=== PATIENT | male | born 1945 | race Caucasian/White ===

== ENCOUNTER → 2017-03-29 | Outpatient (CLI) | payer MEDICARE, OTHER ==
[~2017-03-29] MED LIST: ASPI-664 PO; METO50TA16 PO; ROSU5TAB5 PO
--- NOTE | 2017-03-29 17:19 | RADRPT ---
PROCEDURE: XR Pelvis and Hips. CLINICAL INDICATION: Pelvic pain. Bilateral hip pain. TECHNIQUE: Five views. Frontal pelvis. Frontal and lateral right hip. Frontal and lateral left hip. COMPARISON: 11/26/2014. FINDINGS: There is a large osteochondroma arising from the right femoral neck measuring approximately 10.5 x 5 .4 cm, unchanged. The left hip total arthroplasty also appears satisfactory and unchanged. There i s no fracture or dislocation. There is no lytic lesion. The soft tissues are normal. Articular surfaces are otherwise intact. There are degenerative changes of the lower lumbar spine. IMPRESSION: 1. Large right femoral neck osteochondroma, unchanged. 2. Left hip total arthroplasty appears satisfactory. 3. Degenerative changes of the lower lumbar spine. 4. No change from 11/26/2014. RPTAT: QQ .Giorgio Clifford MD, Date Time Electronically viewed and signed by .Giorgio Clifford MD, on 03/29/2017 17:18 .R/
--- NOTE | 2017-03-29 17:22 | RADRPT ---
PROCEDURE: XR Femur. CLINICAL INDICATION: Left leg pain. TECHNIQUE: AP and lateral views of the left femur were performed. COMPARISON: None. FINDINGS: There is a left hip total arthroplasty which appears satisfactory. There are osteochondromas of the distal femur with mild deformity of the metaphysis. Articular surfaces are intact. There is no lytic or blastic lesion. There are moderate degenerative changes of the left knee joint. IMPRESSION: 1. Satisfactory postoperative appearance of the left hip. 2. Osteochondromas of the distal femur with mild deformity of the metaphysis. 3. Moderate degenerative changes of the left knee joint. RPTAT: QQ .Giorgio Clifford MD, MD Date Time Electronically viewed and signed by .Giorgio Clifford MD, on 03/29/2017 17:22 .R/
== END | disposition home or self-care (01) ==
LOC: HKI 14:14
PROVIDERS: ATTEND Orthopaedic Surgery
DX: M25.552 Pain in left hip (principal); D16.9 Benign neoplasm of bone and articular cartilage, unspecified; M25.551 Pain in right hip; Z96.642 Presence of left artificial hip joint; T84.091A Other mechanical complication of internal left hip prosthesis, initial encounter
CPT/HCPCS: 73523; 73552; G0463

== ENCOUNTER → 2017-04-01 | Outpatient (CLI) | payer MEDICARE, OTHER ==
--- NOTE | 2017-04-01 16:03 | RADRPT ---
PROCEDURE: Three-phase bone scan study CLINICAL INDICATION: 72 -year-old patient with left hip replacement, complaining of left hip pain. TECHNIQUE: Following the intravenous injection of 25.1 mCi of Tc-99m MDP, a three-phase bone scan study of the hips bilaterally was obtained. Delayed images of the lower thoracic and lumbar spine an d knees bilaterally were obtained. COMPARISON: No prior bone scan studies. X-ray of the hips bilaterally dated March 29, 2017. CT scan of the left lower extremity dated April 01, 2017. FINDINGS: Blood flow phase of the study demonstrates symmetrical distribution of activity in the hips bilatera lly. Blood pooling images reveal symmetrical distribution of uptake in both hips. Delayed images of both hips demonstrate evidence of a left hip replacement with mildly increased act ivity noted surrounding the prosthesis, including the tip of the prosthesis in the left proximal fem ur, which possibly related to prior surgery. Area of moderately increased activity is visualized in the region of the right hip, which correspond s to a large osteochondroma arising from the right femoral neck measuring approximately 10.5 cm in m aximal dimension as noted on the x-ray dated March 29, 2017. Delayed spot images of the knees bilaterally demonstrate very mildly increased activity in both knee s, which favor degenerative disease. Mildly nonhomogeneous distribution of activity is seen in the lumbar spine, which is likely related to degenerative process. IMPRESSION: 1. Evidence of the left hip replacement with possibly postsurgical changes; prosthesis loosening ca nnot be ruled out. 2. Moderately increased tracer uptake in the right hip region correlating with a 10.5 cm osteochond oskar visualized on the previous x-ray. 3. Likely mild degenerative changes of the lumbar spine and both knees. 4. No other abnormal areas of increased uptake in the obtained limited views of both hips and knees . RPTAT: HH .Liz Vaughn MD, MD Date Time Electronically viewed and signed by .Liz Vaughn MD, on 04/01/2017 16:02 .L/
--- NOTE | 2017-04-01 20:26 | RADRPT ---
PROCEDURE: CT left hip without contrast CLINICAL INDICATION: Left hip pain, status post left total hip arthroplasty. TECHNIQUE: A noncontrast CT of the left hip was performed. Coronal and sagittal reformats were ge nerated. CTDIvol: 36.48 mGy. DLP: 2441.87 mGy-cm. COMPARISON: Pelvis and left hip x-rays dated 03/29/2017. FINDINGS: The patient status post left total hip arthroplasty. Beam-hardening artifact from the arthroplasty h ardware slightly limits evaluation of the adjacent structures. Osseous alignment is normal. No frac ture or dislocation is identified. There is no evidence of osteolysis. The bones are osteopenic. N o suspicious osseous lesion is identified. The left iliac bone appears expanded, but the left iliac cortex and medullary space are normal in appearance. There is fusion across the left sacroiliac lori nt. No suspicious osseous lesion is identified. There is a 1.0 cm calcification posterior to the kne e joint possibly intra-articular loose body. There is severe sigmoid colon diverticulosis. There is a small fat containing left inguinal hernia. IMPRESSION: 1. Left total hip arthroplasty. There is no evidence of osteolysis. 2. No fracture or dislocation. 3. Osteopenia. 4. Fusion across the left sacroiliac joint. 5. 1.0 cm calcification posterior to the knee joint, possibly intra-articular loose body. This coul d be further evaluated with MRI if clinically warranted. RPTAT: HTAR .Bryn Gaxiola MD, Date Time Electronically viewed and signed by .Bryn Gaxiola MD, on 04/01/2017 20:25 .R/
== END | disposition home or self-care (01) ==
LOC: NUC 09:59
PROVIDERS: ATTEND Orthopaedic Surgery
DX: T84.84XA Pain due to internal orthopedic prosthetic devices, implants and grafts, initial encounter (principal); Z96.642 Presence of left artificial hip joint; Y83.8 Other surgical procedures as the cause of abnormal reaction of the patient, or of later complication, without mention of misadventure at the time of the procedure
CPT/HCPCS: 73700; 78315; A9503

== ENCOUNTER → 2017-05-21 | Outpatient (CLI) | payer MEDICARE, OTHER ==
[~2017-05-21] MED LIST changes: +ASPI325T32 PO; +HYDR-3605 PO; +PANT40TA4 PO; +PRAV10TA43 PO; +TAMS0.4C2 PO; +TRAM50TA2 PO
== END | disposition home or self-care (01) ==
LOC: HKI 09:05
PROVIDERS: ATTEND Orthopaedic Surgery
DX: Z01.818 Encounter for other preprocedural examination (principal); T84.091A Other mechanical complication of internal left hip prosthesis, initial encounter; M25.552 Pain in left hip; Y83.8 Other surgical procedures as the cause of abnormal reaction of the patient, or of later complication, without mention of misadventure at the time of the procedure; D16.9 Benign neoplasm of bone and articular cartilage, unspecified; M25.551 Pain in right hip; Z96.642 Presence of left artificial hip joint
CPT/HCPCS: 87081; G0463

== ENCOUNTER 2017-05-27 09:53 | Inpatient (IN) | payer MEDICARE, OTHER ==
[2017-05-26 11:02] VITALS: BMI 31.5
[~2017-05-27] VITALS: Ht 172.7 cm; Wt 94.2 kg
[2017-05-27] VITALS (21 sets, daily range): BP systolic 124–179; BP diastolic 59–83; PULSE 72–92; RESP 13–29; Ht 172.7 cm; Wt 94.2 kg
[2017-05-27] MEDS: PAIN COCKTAIL-CEFUROXIME IRR SCH ×7
[~2017-05-27 09:53] MED LIST changes: -ASPI325T32 PO; -HYDR-3605 PO; -PANT40TA4 PO; -PRAV10TA43 PO; -TAMS0.4C2 PO; -TRAM50TA2 PO
[2017-05-27] MEDS ORDERED: PRAV10TA43 PO (11:11)
[2017-05-27] MEDS ORDERED: TAMS0.4C2 PO (11:11)
[2017-05-27] MEDS ORDERED: TRANEXAMIC ACID 940 MG in SOD CHLORIDE 0.9% 100 ML IVPB SCH (12:00)
[2017-05-27] MEDS ORDERED: CEFAZOLIN 2GM/50 ML (PMX) 50 ML X1 BEFORE INCISION IVPB SCH (12:00)
[2017-05-27] MEDS ORDERED: BUPIVACAINE LIPOSOME/PF 266 MG/20 ML VIAL INFIL SCH (12:00)
[2017-05-27] MEDS ORDERED: oxyCODONE (CR) 10 MG TAB [oxyCONTIN] X1 DOSE PO SCH (12:00)
[2017-05-27] MEDS ORDERED: ONDANSETRON 4 MG IV X 1 DOSE IV SCH (12:00)
[2017-05-27] MEDS ORDERED: EXPAREL NOTE (BUPIVICAINE LIPOSOMAL) XX SCH (12:00)
[2017-05-27] MEDS ORDERED: LACTATED RINGER'S 1,000 ML IV SCH (12:00)
[2017-05-27] MEDS ORDERED: PREGABALIN 300 MG PO X1 PO SCH (12:00)
[2017-05-27] MEDS ORDERED: traMADOL 50 MG TAB X 1 DOSE PO SCH (12:00)
[2017-05-27] MEDS ORDERED: TRANEXAMIC ACID IV SCH (12:00)
[2017-05-27] MEDS ORDERED: CELECOXIB 400 MG PO X1 DOSE PO SCH (12:00)
[2017-05-27] MEDS ORDERED: SOD CHLORIDE 0.9% IV SCH (12:00)
[2017-05-27] MEDS ORDERED: FENTAnyl 50 MCG/ML VIAL ONE (12:33)
[2017-05-27] MEDS ORDERED: NEOSTIGMINE 3 MG/3 ML SYRINGE ONE (12:33)
[2017-05-27] MEDS ORDERED: CEFAZOLIN 1 GM INJ ONE (12:33)
[2017-05-27] MEDS ORDERED: PROPOFOL 20 ML ONE (12:33)
[2017-05-27] MEDS ORDERED: ROCURONIUM 50 MG INJ ONE (12:33)
[2017-05-27] MEDS ORDERED: GLYCOPYRROLATE 0.4 MG INJ ONE (12:33)
[2017-05-27] MEDS ORDERED: MIDAZOLAM 1 MG/ML 2 ML INJ ONE (12:34)
[2017-05-27] MEDS ORDERED: ONDANSETRON 4 MG INJ ONE (12:34)
[2017-05-27] MEDS ORDERED: DEXAMETHASONE 4 MG/ML 1 ML INJ ONE (12:34)
--- NOTE | 2017-05-27 13:06 | HPN ---
Date/Time of Note Date/Time of Note DATE: 05/27/17 TIME: 13:05 Interval H&P Admission Note Pt. seen H&P reviewed: No system changes No changes from H&P on 05/14/17 by ANA Zurita MD May 27, 2017 13:06
[2017-05-27] MEDS ORDERED: POLYMYXIN/BACITRACIN 1L IRRIG ONE (13:21)
[2017-05-27] MEDS ORDERED: POLYMYXIN B 500000 UNIT INJ ONE (13:59)
[2017-05-27] MEDS ORDERED: VANCOMYCIN 1 GM INJ ONE (13:59)
[2017-05-27] MEDS ORDERED: BACITRACIN 50000 UNITS INJ ONE (14:00)
[2017-05-27] MEDS ORDERED: hydrALAzine 20 MG INJ IV PRN (14:30)
[2017-05-27] MEDS ORDERED: MIDAZOLAM 1 MG/ML 2 ML INJ IV PRN (14:30)
[2017-05-27] MEDS ORDERED: DIPHENHYDRAMINE 50 MG INJ IV PRN (14:30)
[2017-05-27] MEDS ORDERED: HYDROmorphONE (0.2 MG/ML) 10ML SYG IV PRN ×3 (14:30)
[2017-05-27] MEDS ORDERED: OXYCODONE/ACETAMINOPHEN (5/325) TAB PO PRN ×2 (14:30)
[2017-05-27] MEDS ORDERED: FENTAnyl 50 MCG/ML VIAL IV PRN ×2 (14:30)
[2017-05-27] MEDS ORDERED: ONDANSETRON 4 MG INJ IV PRN ×2 (14:30→17:00)
[2017-05-27] MEDS ORDERED: LABETALOL HCL 20MG INJ IV PRN (14:30)
[2017-05-27] MEDS ORDERED: EPHEDrine SULFATE 50 MG/5 ML SYG IV PRN (14:30)
[2017-05-27] MEDS ORDERED: MEPERIDINE 25 MG INJ IV PRN (14:30)
[2017-05-27] MEDS ORDERED: TRIMETHOBENZAMIDE 100 MG/ML VIAL IM PRN (14:30)
[2017-05-27] MEDS ORDERED: ETOMIDATE 20 MG INJ ONE (14:35)
[2017-05-27] MEDS ORDERED: PROPOFOL 100 ML ONE (14:35)
--- NOTE | 2017-05-27 16:33 | OPR ---
Date/Time of Note Date/Time of Note DATE: 05/27/17 TIME: 16:24 Operative Report Preoperative Diagnosis Impending fracture left femur below a total hip arthroplasty Postoperative Diagnosis Same Operation Performed Prophylactic plating left femur Surgeon: ANA DIAZ MD Anesthesia: general, spinal Anesthesiologist: Panfilo Estrada M.D. Estimated Blood Loss: 100 - 150 ml's Specimens None Grafts/Implants Synthes 12 hole locking condylar plate Tubes/Drains None Complications: None Pt Condition Post Procedure: stable Disposition: PACU Indications The patient is a 72-year-old gentleman with a history of osteochondromatosis who previously underwent a left total hip arthroplasty. He has developed some pain in the thigh below the stem. He has radiographic features of some varus remodeling around the stem and I felt that this represented an impending fracture. I recommended prophylactic plating. The risks benefits alternatives of the procedure were explained detail to the patient. Explained the risks to include but not be limited to bleeding and possible need for blood transfusion, infection, pain, stiffness, neurovascular injury with possible numbness, weakness, and/or paralysis anywhere from the hip down to the toes, fracture, malunion, nonunion, need for additional future surgery including hardware removal, blood clots, pulmonary embolism, and anesthetic complications such as heart attack, stroke, GI bleed, pneumonia, and/or . Ample time was allowed for the patient to ask questions all of which were addressed and answered. He understood and wished to proceed. Informed consent was signed prior to the procedure. Procedure Description A timeout was performed to confirm that the left side as correct operative site. The patient was then brought to the operating room and transferred from the [facility] to the operating room table where he was administered a spinal anesthetic and then anesthetized and intubated. Gabriel catheter was placed. He was given 2 g of intravenous Ancef within 1 hour prior to incision. He was then turned to the lateral decubitus position with the left side up. He was secured into the pegboard and all bony prominences were well-padded. An axillary roll had been placed under the right chest wall. The left hip and lower extremity were prepped and draped in the usual sterile fashion all the way down to the toes. At this point a incision was made over the lateral aspect of distal femur. This was carried down subcutaneous tissue and fat sharp dissection. The iliotibial band was incised. The vastus lateralis was identified and elevated off the distal femur. At this point a 12 hole left Synthes locking condylar plate was brought onto the field and placed in the distal femur and slid subperiosteally up the femur such that there were approximately 4 holes overlapping the distal portion of the femoral stem and bypass in the area of concern of varus remodeling. Another incision was made proximally separate from the distal incision and the proximal portion of the plate identified. It was placed appropriately on the femur from anterior to posterior. A provisional pin was placed proximally. Provisional wires were placed through the locking condylar portion of the distal plate into the distal femur. AP and lateral C-arm images showed that the plate to be in good position proximally distally on both AP and lateral views. At this point distal screws were placed through the locking condylar portion into the femur with the large central 7.3 screw and then peripheral screws around this. Attention was then turned proximally and eyelet holes were placed into the locking screw holes of the plate and 4 cables were passed around the femur and placed through the eyelet holes and tensioned to 100 kg pressure and then cut after the cable was crimped. Final AP and lateral C-arm images showed that the plate to be in good position proximally and distally. The wounds were irrigated with Betadine saline and then antibiotic saline and closed in layers with #1 Vicryl No. 2 Stratafix and 3-0 Vicryl and then mateus on the skin. Skin edges were sealed with Dermabond the wounds were covered with silver Mepilex dressings. The patient was awakened and extubated and taken to the recovery room in stable condition. ANA DIAZ MD May 27, 2017 16:32
[2017-05-27 16:49] LABS: HEMATOCRIT 37.9 % (42.0-52.0); HEMOGLOBIN 12.8 g/dl (14.0-18.0)
[2017-05-27] MEDS: FENTAnyl 50 MCG/ML VIAL IV PRN ×2 (16:55→17:29)
[2017-05-27] MEDS ORDERED: BISACODYL 10 MG SUPP PR PRN (17:00)
[2017-05-27] MEDS ORDERED: NACL 0.9% 3 ML SYG IV SCH (17:00)
[2017-05-27] MEDS ORDERED: DIPHENHYDRAMINE 25 MG CAP PO PRN (17:00)
[2017-05-27] MEDS ORDERED: NA PHOSPHATE/BIPHOS 133 ML ENEMA PR PRN (17:00)
[2017-05-27] MEDS ORDERED: HYDROmorphONE 1 MG/ML SYG IV PRN (17:00)
[2017-05-27] MEDS ORDERED: PENDING SANTYL ORDER FOR WOUND CARE XX PRN (17:00)
[2017-05-27] MEDS ORDERED: oxyCODONE 5 MG TAB PO PRN ×2 (17:00)
[2017-05-27] MEDS ORDERED: ASPIRIN (EC) 325 MG TAB PO ONE (17:00)
[2017-05-27] MEDS: LACTATED RINGER'S 1,000 ML IV SCH (17:09)
[2017-05-27 17:10] LABS: CREATININE 0.85 mg/dl (0.61-1.24); POTASSIUM 4.7 mmol/L (3.5-5.1)
[2017-05-27 17:13] LABS: CALCIUM 8.3 mg/dl (8.4-10.2)
--- NOTE | 2017-05-27 17:58 | RADRPT ---
PROCEDURE: Intraoperative imaging of the left femur with fluoroscopy. CLINICAL INDICATION: Left leg pain. Intraoperative. TECHNIQUE: 6 images of the left femur were obtained in the operating room with an image intensifie r. No radiologist was in attendance. 1.3 minutes of fluoroscopy time was used. COMPARISON: Left femur radiographs dated 03/29/2017. FINDINGS: Images demonstrate a left hip arthroplasty as seen previously. There is new lateral plate, multiple screws, and cerclage wires. IMPRESSION: 1. Intraoperative imaging of the left femur. RPTAT: QQ .Giorgio Clifford MD, MD Date Time Electronically viewed and signed by .Giorgio Clifford MD, on 05/27/2017 17:58 .R/
--- NOTE | 2017-05-27 18:01 | RADRPT ---
PROCEDURE: XR Left Knee. CLINICAL INDICATION: Left knee pain. TECHNIQUE: Two views. Frontal and lateral. COMPARISON: Left knee radiographs dated 06/08/2014. Left femur radiographs dated 03/29/2017. FINDINGS: There is a new lateral plate, multiple screws, and cerclage wires in the femur. Lateral skin staple s are noted. Gas is present in the soft tissues from the recent surgery. The articular surfaces are intact. There are multiple osteochondromas of the distal femur, proximal tibia, and proximal fibula with associated deformity. There is no lytic or blastic lesion. IMPRESSION: 1. Satisfactory postoperative appearance of the left distal femur. 2. Multiple osteochondromas. RPTAT: QQ .Giorgio Clifford MD, MD Date Time Electronically viewed and signed by .Giorgio Clifford MD, MD on 05/27/2017 18:01 .R/
--- NOTE | 2017-05-27 18:46 | RADRPT ---
PROCEDURE: XR Hip. CLINICAL INDICATION: Postoperative examination TECHNIQUE: The AP view of the left hip COMPARISON: CT 04/01/2017 FINDINGS: The patient is status post left total hip arthroplasty. Hardware appears intact in appropriate posi tion. There is a fixation plate and cerclage wires along the lateral mid femur. Soft tissue structu res appear within normal limits. IMPRESSION: 1. Prior left hip arthroplasty. 2. Interval placement of a lateral plate and cerclage wires around the mid femur. RPTAT: DD .Farhat Ellington MD, MD Date Time Electronically viewed and signed by .Farhat Ellington MD, MD on 05/27/2017 18:45 .T/
[2017-05-27] MEDS: ACETAMINOPHEN 1000MG/100ML IV 100 ML IVPB SCH (19:36)
[2017-05-27] MEDS: CEFAZOLIN 2 GM/50 ML (PMX) 50 ML IVPB SCH (20:05)
[2017-05-27] MEDS: PREGABALIN 50 MG CAP PO SCH (22:37)
[2017-05-27] MEDS: PANTOPRAZOLE (EC) 40 MG TAB PO SCH (22:37)
[2017-05-27] MEDS: DOCUSATE SODIUM 100 MG CAP PO SCH (22:38)
[2017-05-27] MEDS: METOPROLOL (XL) 50 MG TAB PO SCH (22:38)
[2017-05-27] MEDS: TAMSULOSIN (SR) 0.4 MG CAP PO SCH (22:38)
[2017-05-28] MEDS: ACETAMINOPHEN 1000MG/100ML IV 100 ML IVPB SCH ×3 (00:25→12:28)
[2017-05-28] MEDS: LACTATED RINGER'S 1,000 ML IV SCH ×4 (00:27→23:39)
[2017-05-28] MEDS: CEFAZOLIN 2 GM/50 ML (PMX) 50 ML IVPB SCH ×2 (04:07→12:32)
[2017-05-28 05:14] LABS: HEMATOCRIT 35.4 % (42.0-52.0); HEMOGLOBIN 11.4 g/dl (14.0-18.0)
[2017-05-28 05:45] LABS: CALCIUM 8.3 mg/dl (8.4-10.2); CREATININE 0.73 mg/dl (0.61-1.24); POTASSIUM 5.1 mmol/L (3.5-5.1)
[2017-05-28] MEDS: PANTOPRAZOLE (EC) 40 MG TAB PO SCH ×2 (05:51→17:58)
[2017-05-28] MEDS: traMADol 50 MG TAB PO SCH ×5 (05:52→23:38)
[2017-05-28 07:42] VITALS: BP 130/57; RESP 18
--- NOTE | 2017-05-28 08:12 | CONS ---
Date/Time of Note Date/Time of Note DATE: 05/28/17 TIME: 08:06 Assessment/Plan Assessment/Plan Additional Assessment/Plan 1. Status post left hip replacement, doing well 2. HBP, controlled 3. Hyperlipidemia, will resume statin 4. Known CAD, asx, will continue to monitor 5. Will eval daily for signs and sxs thromboembolic dz 6. Prostatism, will ck post void bladder residual Consultation Date/Type/Reason Admit Date/Time May 27, 2017 at 16:37 Date of Consultation: May 28, 2017 Type of Consultation: Post op left hip replacement Reason for Consultation Post op management of HBP, known CAD and prostatism Referring Provider: ANA DIAZ MD Hx of Present Illness Because of continued pain involving his left hip following prior left hip replacement in 2013 pt elected to proceed with surgery. Respiratory: No cough, No shortness of breath Cardiovascular: No chest pain, No palpitations Gastrointestinal: no complaints Genitourinary: no complaints Musculoskeletal: bone/joint pain (mild left hip pain) Past Medical History 1. hx known cad with prior cabs and stent placement, and nucl stress study preop that was nl 2. Hx elev chol 3. Hx HBP 4. Hx prostatism 5. Hx osteoporosis 7. Hx fatty liver Family History Significant Family History: no pertinent family hx Social History retired [employer] alcohol non smoker Smoking Status: Never smoker Exam/Review of Systems Vital Signs Vitals Vital Signs Date Time Temp Pulse Resp B/P Pulse Ox O2 Delivery O2 Flow Rate FiO2 05/28/17 07:42 97.7 83 18 130/57 100 05/27/17 22:20 Nasal Cannula 2.0 Intake and Output 05/27/17 05/27/17 05/28/17 15:00 23:00 07:00 Intake Total 3100 ml 1225 ml Output Total 500 ml 720 ml Balance 2600 ml 505 ml Exam Neck: No jvd Respiratory: clear to auscultation Cardiovascular: regular rate and rhythm Gastrointestinal: soft Extremities: No edema (and no calf tend) Results Result Diagram: 05/28/17 0420 05/28/17 0425 Results 24 hrs Laboratory Tests Test 05/27/17 16:40 05/28/17 04:20 05/28/17 04:25 Hemoglobin 12.8 #L 11.4 L Hematocrit 37.9 #L 35.4 L Sodium Level 137 136 Potassium Level 4.7 5.1 Chloride Level 106 101 Carbon Dioxide Level 26 28 Anion Gap 10 12 Blood Urea Nitrogen 9 10 Creatinine 0.85 0.73 Glucose Level 115 132 Calcium Level 8.3 L 8.3 L Medications Medications Current Medications Miscellaneous Information 1 ea NOTE XX ; Start 05/27/17 at 12:00; Stop 05/31/17 at 11:59 Metoprolol Succinate (Toprol Xl) 50 mg HS PO Last administered on 05/27/17 22: 38; Admin Dose 50 MG; Start 05/27/17 at 21:00 Tamsulosin HCl 0.4 mg 0.4 mg HS PO Last administered on 05/27/17 22:38; Admin Dose 0.4 MG; Start 05/27/17 at 21:00 Lactated Ringer's (Lr) 1,000 ml @ 125 mls/hr Q8H IV Last administered on 17:09; Admin Dose 125 MLS/HR; Start 05/27/17 at 16:33 Celecoxib 200 mg 200 mg DAILY PO ; Start 05/28/17 at 09:00 Acetaminophen (Ofirmev 1000mg/ 100ml Iv) 100 ml @ 400 mls/hr Q6 IVPB Last administered on 05/28/17 05:52; Admin Dose 400 MLS/HR; Start 05/27/17 at 18:00 ; Stop 05/28/17 at 17:59 Tramadol HCl (Ultram) 50 mg Q6 PO Last administered on 05/28/17 05:52; Admin Dose 50 MG; Start 05/28/17 at 00:00; Stop 05/30/17 at 00:00 Oxycodone HCl (Roxicodone) 5 mg Q4H PRN PO PAIN LEVEL 1-3; Start 05/27/17 at 17 :00 Oxycodone HCl (Roxicodone) 10 mg Q4H PRN PO PAIN LEVEL 4-7; Start 05/27/17 at 17:00 Hydromorphone HCl 1 mg 1 mg Q3H PRN IV PAIN LEVEL 8-10 Last administered on 04:10; Admin Dose 1 MG; Start 05/27/17 at 17:00 Cefazolin Sodium/ Dextrose (Ancef 2 Gm/50 ml (Pmx)) 50 ml @ 100 mls/hr Q8H IVPB Last administered on 05/28/17 04:07; Admin Dose 100 MLS/HR; Start at 20:00; Stop 05/28/17 at 12:29 Ondansetron HCl (Zofran Inj) 4 mg Q6H PRN IV NAUSEA AND/OR VOMITING; Start at 17:00 Bisacodyl (Dulcolax Supp) [address] CONSTIPATION; Start 05/27/17 at 17: 00 Magnesium Hydroxide (Milk Of Mag) 30 ml BID PRN PO CONSTIPATION; Start at 17:00 Sodium Biphosphate/ Sodium Phosphate (Fleet Enema) [address] CONSTIPATION; Start 05/27/17 at 17:00 Docusate Sodium (Colace) 100 mg BID PO Last administered on 05/27/17 22:38; Admin Dose 100 MG; Start 05/27/17 at 21:00 Diphenhydramine HCl (Benadryl) 25 mg Q6H PRN PO PRURITUS; Start 05/27/17 at 17: 00 Aspirin (Ecotrin) 325 mg BID PO ; Start 05/28/17 at 09:00 Pantoprazole (Protonix Tab) 40 mg BID@06,18 PO Last administered on 05/28/17 05:51; Admin Dose 40 MG; Start 05/27/17 at 21:00 Pregabalin (Lyrica) 50 mg BID PO Last administered on 05/27/17 22:37; Admin Dose 50 MG; Start 05/27/17 at 21:00 [facility] This patient mclean... PRN PRN XX WOUND CARE; Start 05/27/17 at 17:00 MARCIE CARSON MD May 28, 2017 08:12
[2017-05-28] MEDS: PREGABALIN 50 MG CAP PO SCH ×2 (08:45→20:12)
[2017-05-28] MEDS: ASPIRIN (EC) 325 MG TAB PO SCH ×2 (08:45→20:12)
[2017-05-28] MEDS: DOCUSATE SODIUM 100 MG CAP PO SCH ×2 (08:45→20:12)
[2017-05-28] MEDS ORDERED: CELECOXIB 200 MG CAP PO SCH (09:00)
--- NOTE | 2017-05-28 09:03 | PN ---
Date/Time of Note Date/Time of Note DATE: 05/28/17 TIME: 09:02 Assessment/Plan Lines/Catheters IV Catheter Type (from Nrsg): Peripheral IV Gabriel in Place (from Nrsg): Yes Assessment/Plan Assessment/Plan POD # 1. Stable. -OOB with PT -WBAT left LE -Pain meds -ASA/SCDs -Plan for d/c to home tomorrow Subjective 24 Hr Interval Summary Comfortable. Minimal pain. Exam/Review of Systems Vital Signs Vitals Vital Signs Date Time Temp Pulse Resp B/P Pulse Ox O2 Delivery O2 Flow Rate FiO2 05/28/17 07:42 97.7 83 18 130/57 100 05/27/17 22:20 Nasal Cannula 2.0 Intake and Output 05/27/17 05/27/17 05/28/17 15:00 23:00 07:00 Intake Total 3100 ml 1225 ml Output Total 500 ml 720 ml Balance 2600 ml 505 ml Exam Free Text/Dictation Dressings dry Incision clean, dry, and intact without redness or drainage 5/5 Tibialis Anterior, EHL, Gastroc Soleus, Peroneals Normal sensation Palpable DP/PT, CR < 2 Sec No distal edema XRAY: Plate in good position proximally and distally. Left KARLEY located. Results Result Diagram: 05/28/17 0420 05/28/17 0425 ANA DIAZ MD May 28, 2017 09:03
[2017-05-28] MEDS ORDERED: HYDR-3605 PO (09:07)
[2017-05-28] MEDS ORDERED: ASPI325T32 PO (09:07)
[2017-05-28] MEDS ORDERED: TRAM50TA2 PO (09:07)
[2017-05-28] MEDS ORDERED: PANT40TA4 PO (09:07)
[2017-05-28 09:21] LABS: ADD UMIC YES; UR ASCORBIC ACID NEGATIVE (NEGATIVE); UR BACTERIA FEW /HPF (NONE SEEN); UR BILIRUBIN (Dip) NEGATIVE (NEGATIVE); UR BLOOD (Dip) 2+ mg/dL (NEGATIVE); UR CLARITY CLEAR (CLEAR); UR COLOR YELLOW (YELLOW); UR GLUCOSE (Dip) NEGATIVE (NEGATIVE); UR KETONES (Dip) NEGATIVE (NEGATIVE); UR LEUKOCYTE ESTERASE (Dip) NEGATIVE Leu/ul (NEGATIVE); UR MUCUS FEW /HPF (NONE SEEN); UR NITRITE (Dip) NEGATIVE (NEGATIVE); UR RBC 118 /HPF (0-5); UR SPECIFIC GRAVITY (Dip) 1.032 (1.003-1.030); UR TOTAL PROTEIN (Dip) NEGATIVE (NEGATIVE); UR UROBILINOGEN (Dip) NEGATIVE (NEGATIVE)
[2017-05-28] MEDS: HYDROCODONE/APAP (7.5/325) TAB PO PRN ×2 (15:00→20:55)
[2017-05-28 19:44] VITALS: BP 102/56; RESP 20
[2017-05-28] MEDS: ATORVASTATIN 10 MG TAB PO SCH (20:12)
[2017-05-28] MEDS: TAMSULOSIN (SR) 0.4 MG CAP PO SCH (20:13)
[2017-05-28] MEDS: METOPROLOL (XL) 50 MG TAB PO SCH (20:13)
[2017-05-28 20:24] VITALS: BP 102/54; PULSE 70; RESP 18
[2017-05-29 05:12] LABS: HEMATOCRIT 29.4 % (42.0-52.0); HEMOGLOBIN 9.8 g/dl (14.0-18.0)
[2017-05-29 05:37] LABS: CALCIUM 8.3 mg/dl (8.4-10.2); CREATININE 0.75 mg/dl (0.61-1.24); POTASSIUM 4.4 mmol/L (3.5-5.1)
[2017-05-29] MEDS: PANTOPRAZOLE (EC) 40 MG TAB PO SCH ×2 (05:57→18:24)
[2017-05-29] MEDS: traMADol 50 MG TAB PO SCH ×4 (05:58→23:14)
[2017-05-29] MEDS: LACTATED RINGER'S 1,000 ML IV SCH ×3 (06:30→23:15)
[2017-05-29 07:39] VITALS: BP 97/53; RESP 18
[2017-05-29] MEDS: DOCUSATE SODIUM 100 MG CAP PO SCH ×2 (08:31→20:02)
[2017-05-29] MEDS: PREGABALIN 50 MG CAP PO SCH ×2 (08:31→20:05)
[2017-05-29] MEDS: ASPIRIN (EC) 325 MG TAB PO SCH ×2 (08:31→20:02)
--- NOTE | 2017-05-29 09:07 | PN ---
Date/Time of Note Date/Time of Note DATE: 05/29/17 TIME: 09:05 Assessment/Plan VTE Prophylaxis VTE Prophylaxis Intervention: ambulation, SCD's, other (Aspirin 325 mg twice daily) Lines/Catheters IV Catheter Type (from Nrsg): Saline Lock Gabriel in Place (from Nrsg): Yes Assessment/Plan Assessment/Plan -Pain Meds as needed -Dress change performed today -OOB with PT -ASA/SCDs for DVT Prophylaxis -Continue monitoring with Internal Medicine -Likely discharge home tomorrow as patient would like to stay additional night for additional physical therapy. -Patient Stable Subjective 24 Hr Interval Summary 72-year-old male postop day 2 placement of femoral plate to the left femur. Patient is weightbearing as tolerated. He does have 6/10 pain to the proximal and distal lateral femur on the left lower extremity that improves with standing. Patient does not feel confident at this time in regards to weightbearing and would like to continue additional physical therapy prior to discharge home. Denies any other complaints. Exam/Review of Systems Vital Signs Vitals Vital Signs Date Time Temp Pulse Resp B/P Pulse Ox O2 Delivery O2 Flow Rate FiO2 05/29/17 07:39 97.8 75 18 97/53 92 05/28/17 20:24 Room Air 05/27/17 22:20 2.0 Intake and Output 05/28/17 05/28/17 05/29/17 15:00 23:00 07:00 Intake Total 875 ml 300 ml 1700 ml Output Total 510 ml 1500 ml Balance 365 ml 300 ml 200 ml Exam Free Text/Dictation * Wound is clean dry and intact * Lying comfortably in bed. * No calf pain on exam. Toes freely movable. 2+ pedal pulses. Constitutional: alert, oriented, well developed Results Result Diagram: 05/29/17 0445 05/29/17 0445 SOFIA BAUM PA-C May 29, 2017 09:07
--- NOTE | 2017-05-29 10:52 | CONS ---
Date/Time of Note Date/Time of Note DATE: 05/29/17 TIME: 10:49 Assessment/Plan Assessment/Plan Chief Complaint/Hosp Course Because of continued pain involving his left hip following prior left hip replacement in 2013 pt elected to proceed with surgery. Problems: Additional Assessment/Plan 1. Doing well post op left knee, sl warmth noted, doubt infection, knee is sl swollen, will check wbc and uric acid tomm 2. BP is controlled 3. Anemia is stable 4. ASHD, stable Consultation Date/Type/Reason Admit Date/Time May 27, 2017 at 16:37 Initial Consult Date 05/28/17 Type of Consultation: Post op left hip replacement Referring Provider: ANA DIAZ MD Detailed Summary Respiratory: No cough, No shortness of breath Cardiovascular: No chest pain Gastrointestinal: No diarrhea, No nausea, No vomiting Genitourinary: no complaints Musculoskeletal: bone/joint pain (left hip pain is moderate and thigh is uncomfortable) Exam/Review of Systems Vital Signs Vitals Vital Signs Date Time Temp Pulse Resp B/P Pulse Ox O2 Delivery O2 Flow Rate FiO2 05/29/17 07:39 97.8 75 18 97/53 92 05/28/17 20:24 Room Air 05/27/17 22:20 2.0 Intake and Output 05/28/17 05/28/17 05/29/17 15:00 23:00 07:00 Intake Total 875 ml 300 ml 1700 ml Output Total 510 ml 1500 ml Balance 365 ml 300 ml 200 ml Exam Neck: No jvd Respiratory: clear to auscultation Cardiovascular: regular rate and rhythm Gastrointestinal: soft Musculoskeletal: joint tenderness (left thigh is warm and knee is sl warm, no redness, ? sl swelling of knee) Extremities: No edema (and no calf tend) Results Result Diagram: 05/29/17 0445 05/29/17 0445 Results 24 hrs Laboratory Tests Test 05/29/17 04:45 Hemoglobin 9.8 L Hematocrit 29.4 L Sodium Level 135 Potassium Level 4.4 Chloride Level 99 Carbon Dioxide Level 26 Anion Gap 14 Blood Urea Nitrogen 17 Creatinine 0.75 Glucose Level 106 Calcium Level 8.3 L Medications Medications Current Medications Miscellaneous Information 1 ea NOTE XX ; Start 05/27/17 at 12:00; Stop 05/31/17 at 11:59 Metoprolol Succinate (Toprol Xl) 50 mg HS PO Last administered on 05/27/17 22: 38; Admin Dose 50 MG; Start 05/27/17 at 21:00 Tamsulosin HCl 0.4 mg 0.4 mg HS PO Last administered on 05/28/17 20:13; Admin Dose 0.4 MG; Start 05/27/17 at 21:00 Lactated Ringer's (Lr) 1,000 ml @ 125 mls/hr Q8H IV Last administered on 10:50; Admin Dose 125 MLS/HR; Start 05/27/17 at 16:33 Tramadol HCl (Ultram) 50 mg Q6 PO Last administered on 05/29/17 05:58; Admin Dose 50 MG; Start 05/28/17 at 00:00; Stop 05/30/17 at 00:00 Hydromorphone HCl (Dilaudid) 1 mg Q3H PRN IV PAIN LEVEL 8-10 Last administered on 05/28/17 04:10; Admin Dose 1 MG; Start 05/27/17 at 17:00 Ondansetron HCl (Zofran Inj) 4 mg Q6H PRN IV NAUSEA AND/OR VOMITING; Start at 17:00 Bisacodyl (Dulcolax Supp) 10 mg Q12H PRN [place] CONSTIPATION; Start 05/27/17 at 17: 00 Magnesium Hydroxide (Milk Of Mag) 30 ml BID PRN PO CONSTIPATION; Start at 17:00 Sodium Biphosphate/ Sodium Phosphate (Fleet Enema) 133 ml DAILY PRN [place] CONSTIPATION; Start 05/27/17 at 17:00 Docusate Sodium (Colace) 100 mg BID PO Last administered on 05/29/17 08:31; Admin Dose 100 MG; Start 05/27/17 at 21:00 Diphenhydramine HCl (Benadryl) 25 mg Q6H PRN PO PRURITUS; Start 05/27/17 at 17: 00 Aspirin (Ecotrin) 325 mg BID PO Last administered on 05/29/17 08:31; Admin Dose 325 MG; Start 05/28/17 at 09:00 Pantoprazole (Protonix Tab) 40 mg BID@06,18 PO Last administered on 05/29/17 05 :57; Admin Dose 40 MG; Start 05/27/17 at 21:00 Pregabalin (Lyrica) 50 mg BID PO Last administered on 05/29/17 08:31; Admin Dose 50 MG; Start 05/27/17 at 21:00 Miscellaneous Information (Pending Santyl Order For Wound Care) This patient mclean... PRN PRN XX WOUND CARE; Start 05/27/17 at 17:00 Atorvastatin Calcium (Lipitor) 10 mg DAILY@21 PO Last administered on 20:12; Admin Dose 10 MG; Start 05/28/17 at 21:00 Acetaminophen/ Hydrocodone Bitart ([place] (7.5-325)) 1 tab Q6H PRN PO MODERATE PAIN LEVEL 4-6 Last administered on 05/28/17 15:00; Admin Dose 1 TAB; Start at 09:30 Acetaminophen/ Hydrocodone Bitart ([place] (7.5-325)) 2 tab Q6H PRN PO SEVERE PAIN LEVEL 7-10 Last administered on 05/28/17 20:55; Admin Dose 2 TAB; Start at 09:30 MARCIE CARSON MD May 29, 2017 10:52
[2017-05-29] MEDS: HYDROCODONE/APAP (7.5/325) TAB PO PRN ×2 (14:56→21:30)
[2017-05-29 19:50] VITALS: BP 163/67; RESP 16
[2017-05-29 19:56] VITALS: BP 160/80; PULSE 92; RESP 18
[2017-05-29] MEDS: TAMSULOSIN (SR) 0.4 MG CAP PO SCH (20:02)
[2017-05-29] MEDS: ATORVASTATIN 10 MG TAB PO SCH (20:03)
[2017-05-29] MEDS: METOPROLOL (XL) 50 MG TAB PO SCH (20:03)
[2017-05-30] MEDS: PANTOPRAZOLE (EC) 40 MG TAB PO SCH ×2 (04:46→17:48)
[2017-05-30] MEDS: MAGNESIUM HYDROXIDE 30ML CUP PO PRN ×2 (04:46→17:55)
[2017-05-30 05:12] LABS: BASOPHIL # 0.1 10^3/ul (0.0-0.1); BASOPHILS % 1.7 % (0.0-2.0); EOSINOPHILS # 0.2 10^3/ul (0.0-0.5); EOSINOPHILS % 2.3 % (0.0-7.0); HEMATOCRIT 31.2 % (42.0-52.0); HEMOGLOBIN 10.2 g/dl (14.0-18.0); LYMPHOCYTES # 1.7 10^3/ul (0.8-2.9); LYMPHOCYTES % 25.8 % (15.0-51.0); MEAN CORPUSCULAR HEMOGLOBIN 31.9 pg (29.0-33.0); MEAN CORPUSCULAR HGB CONC 32.7 g/dl (32.0-37.0); MEAN CORPUSCULAR VOLUME 97.5 fl (82.0-101.0); MEAN PLATELET VOLUME 12.4 fl (7.4-10.4); MONOCYTE # 0.8 10^3/ul (0.3-0.9); NEUTROPHIL # 3.7 10^3/ul (1.6-7.5); NEUTROPHILS % 56.7 % (39.0-77.0); PLATELET COUNT 183 10^3/UL (140-415); RED CELL DISTRIBUTION WIDTH 15.1 % (11.5-14.5); WHITE BLOOD COUNT 6.4 10^3/ul (4.8-10.8)
[2017-05-30 05:35] LABS: CALCIUM 8.6 mg/dl (8.4-10.2); CREATININE 0.67 mg/dl (0.61-1.24); POTASSIUM 4.6 mmol/L (3.5-5.1)
[2017-05-30 06:34] LABS: ADD SCAN DIFF NO
[2017-05-30 07:23] VITALS: BP 112/58; RESP 20
--- NOTE | 2017-05-30 08:04 | PN ---
Date/Time of Note Date/Time of Note DATE: 05/30/17 TIME: 08:01 Assessment/Plan VTE Prophylaxis VTE Prophylaxis Intervention: ambulation, SCD's, other (Aspirin 325 mg twice daily) Lines/Catheters IV Catheter Type (from Nrsg): Saline Lock Gabriel in Place (from Nrsg): Yes Assessment/Plan Assessment/Plan -Pain Meds as needed -Dress change performed today -OOB with PT -ASA/SCDs for DVT Prophylaxis -Continue monitoring with Internal Medicine -Patient Stable -Original plan was to discharge home today but patient has not had bowel movement in would like additional physical therapy. We will plan for discharge home tomorrow. Discussed with charge nurse and she will be giving patient stool softener such as Dulcolax. If unsuccessful, suppository is recommended. Nurse aware. Subjective 24 Hr Interval Summary 72-year-old male postop day 3 placement of femoral plate. Continues with pain complaints that is alleviated with weightbearing. Patient is seated comfortably in room while examining today. Denies any complications with the wound. Patient expresses concern however, he has not had bowel movement in about 3 days. Pain Control: moderate Exam/Review of Systems Vital Signs Vitals Vital Signs Date Time Temp Pulse Resp B/P Pulse Ox O2 Delivery O2 Flow Rate FiO2 05/30/17 07:23 97.8 75 20 112/58 93 05/29/17 19:56 Room Air 05/27/17 22:20 2.0 Intake and Output 05/29/17 05/29/17 05/30/17 15:00 23:00 07:00 Intake Total 1200 ml 1500 ml Output Total 840 ml 1400 ml Balance 360 ml 100 ml Exam Free Text/Dictation * Wounds to the proximal and distal femur along the lateral side clean dry and intact. No signs of infection. No redness. * Negative Homans sign/calf pain on exam today. * Patient is able to weight-bear with limp. Weightbearing using front wheeled walker for assisted ambulation. * Normal sensory examination to light touch. Constitutional: alert, oriented, well developed Results Result Diagram: 05/30/17 0420 05/30/17 042 SOFIA BAMU PA-C May 30, 2017 08:04
[2017-05-30] MEDS: LACTATED RINGER'S 1,000 ML IV SCH (08:33)
[2017-05-30] MEDS: ASPIRIN (EC) 325 MG TAB PO SCH ×2 (08:55→20:29)
[2017-05-30] MEDS: HYDROCODONE/APAP (7.5/325) TAB PO PRN ×2 (08:55→18:00)
[2017-05-30] MEDS: PREGABALIN 50 MG CAP PO SCH ×2 (08:55→20:31)
[2017-05-30] MEDS: DOCUSATE SODIUM 100 MG CAP PO SCH ×2 (08:55→20:29)
--- NOTE | 2017-05-30 11:19 | CONS ---
Date/Time of Note Date/Time of Note DATE: 05/30/17 TIME: 11:17 Assessment/Plan Assessment/Plan Chief Complaint/Hosp Course Because of continued pain involving his left hip following prior left hip replacement in 2013 pt elected to proceed with surgery. Problems: Additional Assessment/Plan 1. Doing well post op left hip replacement. 2. Constipation is being addressed 3. ASHD, asx 4. Hopeful dc tomm 5. IV was stopped Consultation Date/Type/Reason Admit Date/Time May 27, 2017 at 16:37 Initial Consult Date 05/28/17 Type of Consultation: Post op left hip replacement Referring Provider: ANA DIAZ MD Detailed Summary Respiratory: No cough, No shortness of breath Cardiovascular: No chest pain, No orthopenea Gastrointestinal: constipation, no complaints Genitourinary: no complaints Musculoskeletal: bone/joint pain (mild left hip pain) Exam/Review of Systems Vital Signs Vitals Vital Signs Date Time Temp Pulse Resp B/P Pulse Ox O2 Delivery O2 Flow Rate FiO2 05/30/17 07:23 97.8 75 20 112/58 93 05/29/17 19:56 Room Air 05/27/17 22:20 2.0 Intake and Output 05/29/17 05/29/17 05/30/17 15:00 23:00 07:00 Intake Total 1200 ml 1500 ml Output Total 840 ml 1400 ml Balance 360 ml 100 ml Exam Neck: No jvd Respiratory: clear to auscultation Cardiovascular: regular rate and rhythm Gastrointestinal: soft Extremities: No edema (and no calf tend) Results Result Diagram: 05/30/17 0420 05/30/17 0420 Results 24 hrs Laboratory Tests Test 05/30/17 04:20 White Blood Count 6.4 Red Blood Count 3.20 L Hemoglobin 10.2 L Hematocrit 31.2 L Mean Corpuscular Volume 97.5 Mean Corpuscular Hemoglobin 31.9 Mean Corpuscular Hemoglobin Concent 32.7 Red Cell Distribution Width 15.1 H Platelet Count 183 Mean Platelet Volume 12.4 #H Neutrophils % 56.7 Lymphocytes % 25.8 Monocytes % 13.0 H Eosinophils % 2.3 Basophils % 1.7 Nucleated Red Blood Cells % 0.0 Neutrophils # 3.7 Lymphocytes # 1.7 Monocytes # 0.8 Eosinophils # 0.2 Basophils # 0.1 Nucleated Red Blood Cells # 0.0 Sodium Level 137 Potassium Level 4.6 Chloride Level 98 Carbon Dioxide Level 27 Anion Gap 17 H Blood Urea Nitrogen 13 Creatinine 0.67 Glucose Level 104 Uric Acid 5.1 Calcium Level 8.6 Medications Medications Current Medications Miscellaneous Information 1 ea NOTE XX ; Start 05/27/17 at 12:00; Stop 05/31/17 at 11:59 Metoprolol Succinate (Toprol Xl) 50 mg HS PO Last administered on 05/29/17 20: 03; Admin Dose 50 MG; Start 05/27/17 at 21:00 Tamsulosin HCl 0.4 mg 0.4 mg HS PO Last administered on 05/29/17 20:02; Admin Dose 0.4 MG; Start 05/27/17 at 21:00 Lactated Ringer's (Lr) 1,000 ml @ 125 mls/hr Q8H IV Last administered on 10:50; Admin Dose 125 MLS/HR; Start 05/27/17 at 16:33 Hydromorphone HCl (Dilaudid) 1 mg Q3H PRN IV PAIN LEVEL 8-10 Last administered on 05/28/17 04:10; Admin Dose 1 MG; Start 05/27/17 at 17:00 Ondansetron HCl (Zofran Inj) 4 mg Q6H PRN IV NAUSEA AND/OR VOMITING; Start at 17:00 Bisacodyl (Dulcolax Supp) 10 mg Q12H PRN [place] CONSTIPATION; Start 05/27/17 at 17: 00 Magnesium Hydroxide (Milk Of Mag) 30 ml BID PRN PO CONSTIPATION Last administered on 05/30/17 04:46; Admin Dose 30 ML; Start 05/27/17 at 17:00 Sodium Biphosphate/ Sodium Phosphate (Fleet Enema) 133 ml DAILY PRN [place] CONSTIPATION; Start 05/27/17 at 17:00 Docusate Sodium (Colace) 100 mg BID PO Last administered on 05/30/17 08:55; Admin Dose 100 MG; Start 05/27/17 at 21:00 Diphenhydramine HCl (Benadryl) 25 mg Q6H PRN PO PRURITUS; Start 05/27/17 at 17: 00 Aspirin (Ecotrin) 325 mg BID PO Last administered on 05/30/17 08:55; Admin Dose 325 MG; Start 05/28/17 at 09:00 Pantoprazole (Protonix Tab) 40 mg BID@06,18 PO Last administered on 05/30/17 04 :46; Admin Dose 40 MG; Start 05/27/17 at 21:00 Pregabalin (Lyrica) 50 mg BID PO Last administered on 05/30/17 08:55; Admin Dose 50 MG; Start 05/27/17 at 21:00 Miscellaneous Information (Pending Santyl Order For Wound Care) This patient mclean... PRN PRN XX WOUND CARE; Start 05/27/17 at 17:00 Atorvastatin Calcium (Lipitor) 10 mg DAILY@21 PO Last administered on 05/29/17 20:03; Admin Dose 10 MG; Start 05/28/17 at 21:00 Acetaminophen/ Hydrocodone Bitart ([place] (7.5-325)) 1 tab Q6H PRN PO MODERATE PAIN LEVEL 4-6 Last administered on 05/29/17 14:56; Admin Dose 1 TAB; Start at 09:30 Acetaminophen/ Hydrocodone Bitart ([place] (7.5-325)) 2 tab Q6H PRN PO SEVERE PAIN LEVEL 7-10 Last administered on 05/30/17 08:55; Admin Dose 2 TAB; Start at 09:30 MARCIE CARSON MD May 30, 2017 11:19
[2017-05-30 19:48] VITALS: BP 142/65; RESP 18
[2017-05-30] MEDS: ATORVASTATIN 10 MG TAB PO SCH (20:30)
[2017-05-30] MEDS: METOPROLOL (XL) 50 MG TAB PO SCH (20:31)
[2017-05-30] MEDS: TAMSULOSIN (SR) 0.4 MG CAP PO SCH (20:31)
[2017-05-31] MEDS: PANTOPRAZOLE (EC) 40 MG TAB PO SCH (05:35)
[2017-05-31] MEDS: MAGNESIUM HYDROXIDE 30ML CUP PO PRN (05:35)
[2017-05-31 05:51] LABS: HEMATOCRIT 32.4 % (42.0-52.0); HEMOGLOBIN 10.7 g/dl (14.0-18.0)
[2017-05-31 06:26] LABS: CALCIUM 8.4 mg/dl (8.4-10.2); CREATININE 0.73 mg/dl (0.61-1.24); POTASSIUM 4.3 mmol/L (3.5-5.1)
--- NOTE | 2017-05-31 07:46 | PN ---
Date/Time of Note Date/Time of Note DATE: 05/31/17 TIME: 07:44 Assessment/Plan VTE Prophylaxis VTE Prophylaxis Intervention: ambulation, SCD's, other (Aspirin 325 mg twice daily) Lines/Catheters IV Catheter Type (from Nrs): Saline Lock Gabriel in Place (from Nrs): Yes Assessment/Plan Assessment/Plan -Dress change performed today -ASA for DVT Prophylaxis x 6 weeks outpatient discussed. -Continue monitoring as outpatient on discharge -Follow-up at scheduled postop outpatient appointment or sooner if there is any issue. -Tegaderm dressings given with specific instructions to use as outpatient to keep wound dry until mateus are moved around 10 days. -Patient Stable -Discharge to Home with home health Subjective 24 Hr Interval Summary 72-year-old male postop day 4 placement of femoral plate. Pain has improved since he was last seen. Continues to improve even more with weightbearing. Patient did have bowel movement this morning. Ready to go home. Denies any complaints at this time. Constitutional: no complaints Pain Control: well controlled Exam/Review of Systems Vital Signs Vitals Vital Signs Date Time Temp Pulse Resp B/P Pulse Ox O2 Delivery O2 Flow Rate FiO2 05/30/17 19:48 97.6 77 18 142/65 96 05/29/17 19:56 Room Air 05/27/17 22:20 2.0 Intake and Output 05/30/17 05/30/17 05/31/17 15:00 23:00 07:00 Intake Total 1150 ml 600 ml Output Total 950 ml Balance 1150 ml -350 ml Exam Free Text/Dictation * Ecchymosis seen to the more proximal surgical wound along the posterior aspect. * No signs of infection to either wound. Clean dry and intact. [place] are intact. * Toes freely movable. Normal pedal pulses. * Lying comfortably in bed. Constitutional: alert, oriented, well developed Results Result Diagram: 05/31/17 0418 05/31/17 0418 SOFIA BAUM PA-C May 31, 2017 07:46
--- NOTE | 2017-05-31 07:48 | PDOCDIS ---
Discharge Instructions DIAGNOSIS Discharge Diagnosis Status post placement of femoral plate for stabilization. CONDITION Patient Condition: Stable HOME CARE INSTRUCTIONS: Diet Instructions: RegularSpecial Diet: regular ACTIVITY: Activity Restrictions: Slowly Increase Activity Rest between Activity Avoid heavy lifting No Sexual Activity Do not Drive Do not operate Machinery Do not operate Power Tool Avoid Heavy Housework Keep Limb Elevated (May use ice modalities while at rest.) Weight Bearing (Weight-bear as tolerated. Use front wheeled walker for assisted ambulation) Bathing Restrictions: Shower (Using Tegaderm with pad to each area. Placed Tegaderm prior to shower. After area has been properly dab dry, may remove. Repeat the steps until mateus are removed around 10 days postoperatively.) FOLLOW UP/APPOINTMENTS Follow-up Plan Follow-up [address] Eduardo. SOFIA BAUM PA-C May 31, 2017 07:48
--- NOTE | 2017-05-31 08:20 | CONS ---
Date/Time of Note Date/Time of Note DATE: 05/31/17 TIME: 08:18 Assessment/Plan Assessment/Plan Chief Complaint/Hosp Course Because of continued pain involving his left hip following prior left hip replacement in 2013 pt elected to proceed with surgery. Problems: Additional Assessment/Plan 1. Post op left hip surgery, doing well 2. ASHD, asx 3. Labs rev, OK to dc per ortho and PT Consultation Date/Type/Reason Admit Date/Time May 27, 2017 at 16:37 Initial Consult Date 05/28/17 Type of Consultation: Post op left hip replacement Referring Provider: ANA DIAZ MD Detailed Summary Respiratory: No shortness of breath Cardiovascular: No chest pain, No palpitations Gastrointestinal: No no complaints Genitourinary: No no complaints Musculoskeletal: bone/joint pain (mild left hip pain) Exam/Review of Systems Vital Signs Vitals Vital Signs Date Time Temp Pulse Resp B/P Pulse Ox O2 Delivery O2 Flow Rate FiO2 05/30/17 19:48 97.6 77 18 142/65 96 05/29/17 19:56 Room Air 05/27/17 22:20 2.0 Intake and Output 05/30/17 05/30/17 05/31/17 14:59 22:59 06:59 Intake Total 1150 ml 600 ml Output Total 950 ml Balance 1150 ml -350 ml Exam Neck: No jvd Respiratory: clear to auscultation Cardiovascular: regular rate and rhythm Gastrointestinal: soft Extremities: No edema (and no calf tend) Results Result Diagram: 05/31/17 0418 05/31/17 0418 Results 24 hrs Laboratory Tests Test 05/31/17 04:18 Hemoglobin 10.7 L Hematocrit 32.4 L Sodium Level 133 L Potassium Level 4.3 Chloride Level 98 Carbon Dioxide Level 28 Anion Gap 11 Blood Urea Nitrogen 11 Creatinine 0.73 Glucose Level 111 Calcium Level 8.4 Medications Medications Current Medications Miscellaneous Information 1 ea NOTE XX ; Start 05/27/17 at 12:00; Stop 05/31/17 at 11:59 Metoprolol Succinate (Toprol Xl) 50 mg HS PO Last administered on 05/30/17 20: 31; Admin Dose 50 MG; Start 05/27/17 at 21:00 Tamsulosin HCl (Flomax) 0.4 mg HS PO Last administered on 05/30/17 20:31; Admin Dose 0.4 MG; Start 05/27/17 at 21:00 Hydromorphone HCl (Dilaudid) 1 mg Q3H PRN IV PAIN LEVEL 8-10 Last administered on 05/28/17 04:10; Admin Dose 1 MG; Start 05/27/17 at 17:00 Ondansetron HCl (Zofran Inj) 4 mg Q6H PRN IV NAUSEA AND/OR VOMITING; Start at 17:00 Bisacodyl (Dulcolax Supp) 10 mg Q12H PRN [place] CONSTIPATION; Start 05/27/17 at 17: 00 Magnesium Hydroxide (Milk Of Mag) 30 ml BID PRN PO CONSTIPATION Last administered on 05/31/17 05:35; Admin Dose 30 ML; Start 05/27/17 at 17:00 Sodium Biphosphate/ Sodium Phosphate (Fleet Enema) 133 ml DAILY PRN [place] CONSTIPATION; Start 05/27/17 at 17:00 Docusate Sodium (Colace) 100 mg BID PO Last administered on 05/30/17 20:29; Admin Dose 100 MG; Start 05/27/17 at 21:00 Diphenhydramine HCl (Benadryl) 25 mg Q6H PRN PO PRURITUS; Start 05/27/17 at 17: 00 Aspirin (Ecotrin) 325 mg BID PO Last administered on 05/30/17 20:29; Admin Dose 325 MG; Start 05/28/17 at 09:00 Pantoprazole (Protonix Tab) 40 mg BID@06,18 PO Last administered on 05/31/17 05 :35; Admin Dose 40 MG; Start 05/27/17 at 21:00 Pregabalin (Lyrica) 50 mg BID PO Last administered on 05/30/17 20:31; Admin Dose 50 MG; Start 05/27/17 at 21:00 Miscellaneous Information (Pending Santyl Order For Wound Care) This patient mclean... PRN PRN XX WOUND CARE; Start 05/27/17 at 17:00 Atorvastatin Calcium (Lipitor) 10 mg DAILY@21 PO Last administered on 05/30/17 20:30; Admin Dose 10 MG; Start 05/28/17 at 21:00 Acetaminophen/ Hydrocodone Bitart ([place] (7.5-325)) 1 tab Q6H PRN PO MODERATE PAIN LEVEL 4-6 Last administered on 05/29/17 14:56; Admin Dose 1 TAB; Start at 09:30 Acetaminophen/ Hydrocodone Bitart ([place] (7.5-325)) 2 tab Q6H PRN PO SEVERE PAIN LEVEL 7-10 Last administered on 05/30/17 18:00; Admin Dose 2 TAB; Start at 09:30 MARCIE CARSON MD May 31, 2017 08:19
[2017-05-31 08:48] VITALS: BP 137/63; RESP 18
[2017-05-31] MEDS: PREGABALIN 50 MG CAP PO SCH (09:04)
[2017-05-31] MEDS: ASPIRIN (EC) 325 MG TAB PO SCH (09:04)
[2017-05-31] MEDS: DOCUSATE SODIUM 100 MG CAP PO SCH (09:04)
[2017-05-31] MEDS: HYDROCODONE/APAP (7.5/325) TAB PO PRN (09:15)
== END 2017-05-31 14:04 | disposition home or self-care (01) | DRG 482 ==
LOC: SDS 09:53 → REC 16:37 → SDS 19:21 → MS1 21:45
PROVIDERS: ADMIT Orthopaedic Surgery; ATTEND Orthopaedic Surgery
PROC: 0QH904Z Insertion of Internal Fixation Device into Left Femoral Shaft, Open Approach (ICD-10-PCS; principal; 2017-05-27 13:00)
DX: D16.22 Benign neoplasm of long bones of left lower limb (principal); I10 Essential (primary) hypertension; E78.5 Hyperlipidemia, unspecified; Z96.642 Presence of left artificial hip joint; I25.10 Atherosclerotic heart disease of native coronary artery without angina pectoris; N40.0 Benign prostatic hyperplasia without lower urinary tract symptoms; K59.00 Constipation, unspecified
CPT/HCPCS: 73500; 73550; 73560; 80048; 81001; 84560; 85014; 85018; 85025; 86850; 86900; 86901; 86920; 87081; 87086; 97110; 97116; 97162; 97166; 97530; C1713; C1776; J0131; J0690; J1100; J1170; J2250; J2405; J2710; J3010; J3370; J7120

== ENCOUNTER → 2017-06-07 | Outpatient (CLI) | payer MEDICARE, OTHER ==
[~2017-06-07] MED LIST changes: +ASPI325T32 PO; +HYDR-3605 PO; +PANT40TA4 PO; +TAMS0.4C2 PO; +TRAM50TA2 PO
--- NOTE | 2017-06-07 16:22 | RADRPT ---
PROCEDURE: XR Left Hip and pelvis. CLINICAL INDICATION: Left hip pain. Pelvic pain. Postop. TECHNIQUE: Three views. Frontal pelvis. Frontal and lateral left hip. COMPARISON: 03/29/2017. FINDINGS: There is no fracture or dislocation. The soft tissues are normal. There is a left hip total arthroplasty which appears satisfactory. A left lateral plate and cerclage wires are also noted. The right hip is grossly normal. There is no lytic lesion. There is a right proximal femoral osteochondroma measuring approximately 10.0 x 5.1 cm. The upper pelvis is not included on the image. IMPRESSION: 1. Satisfactory postoperative appearance of the left hip. 2. Right proximal femoral osteochondroma. 3. Otherwise unremarkable study. RPTAT: QQ .Giorgio Clifford MD, Date Time Electronically viewed and signed by .Giorgio Clifford MD, on 06/07/2017 16:22 .R/
--- NOTE | 2017-06-07 16:24 | RADRPT ---
PROCEDURE: XR Femur. CLINICAL INDICATION: Left leg pain. TECHNIQUE: AP and lateral views of the left femur were performed. COMPARISON: 03/29/2017. FINDINGS: There is a left hip total arthroplasty which appears satisfactory. There is a new lateral plate with proximal cerclage wires and distal screws with satisfactory alignment. There are osteochondromas of the distal femur with mild deformity of the metaphysis. Articular surfaces are intact. There is no lytic or blastic lesion. There are moderate degenerative changes of the left knee joint. IMPRESSION: 1. Satisfactory postoperative appearance of the left hip. New lateral plate with proximal wires and distal screws. 2. Osteochondromas of the distal femur with mild deformity of the metaphysis. 3. Moderate degenerative changes of the left knee joint. RPTAT: QQ .Giorgio Clifford MD, Date Time Electronically viewed and signed by .Giorgio Clifford MD, on 06/07/2017 16:23 .R/
== END | disposition home or self-care (01) ==
LOC: HKI 09:31
PROVIDERS: ATTEND Orthopaedic Surgery
DX: M25.552 Pain in left hip (principal); D16.21 Benign neoplasm of long bones of right lower limb; Z96.642 Presence of left artificial hip joint
CPT/HCPCS: 73502; 73552

== ENCOUNTER → 2017-07-05 | Outpatient (CLI) | payer MEDICARE, OTHER ==
--- NOTE | 2017-07-05 22:30 | RADRPT ---
PROCEDURE: XR Femur. CLINICAL INDICATION: Left leg pain. TECHNIQUE: AP and lateral views of the left femur were performed. COMPARISON: 06/07/2017. FINDINGS: There is a left hip total arthroplasty which appears satisfactory. A lateral plate with cerclage wi res and multiple screws are also noted. The soft tissues are normal. There is a left distal femoral osteochondroma, unchanged. There is no lytic or blastic lesion. IMPRESSION: 1. Satisfactory postoperative appearance of the left femur. 2. Distal femoral osteochondroma, unchanged. RPTAT: QQ .Giorgio Clifford MD, Date Time Electronically viewed and signed by .Giorgio Clifford MD, on 07/05/2017 22:30 .R/
== END | disposition home or self-care (01) ==
LOC: HKI 10:52
PROVIDERS: ATTEND Orthopaedic Surgery
DX: T84.091D Other mechanical complication of internal left hip prosthesis, subsequent encounter (principal); Y79.8 Miscellaneous orthopedic devices associated with adverse incidents, not elsewhere classified
CPT/HCPCS: 73552